=== PATIENT | male | born 1945 | race Caucasian/White ===

== ENCOUNTER → 2019-02-03 | Outpatient (CLI) | payer BC, MEDICARE | LOC: M.NUC 09:45 | DX: C61 Malignant neoplasm of prostate (principal) ==

== ENCOUNTER → 2019-07-27 | Outpatient (CLI) | payer OTHER, MEDICARE | LOC: M.NUC 05-11 11:37 | DX: C61 Malignant neoplasm of prostate (principal) ==

== ENCOUNTER 2021-08-14 17:31 | Inpatient (IN) | payer MEDICARE, OTHER ==
[~2021-08-14] VITALS: Ht 182.9 cm; Wt 123.8 kg
--- NOTE | ~2021-08-14 | OP ---
[address] [address] OPERATIVE REPORT Name: STEPHANIE CHILDRESS Room: [address] IN .R.#: [id number] Admission: 08/14/21 Attend Phys: Trevor Franks MD Discharge: Date of : 49 Report #: [id number] THIS REPORT FOR: cc: Ethan Montana MD, Anthony MD Gazzetta, Joshua D. DO ~ DATE OF SURGERY: 08/16/2021 SURGEON: You Osman DO DOSIMETRIST: Dr. Sky Arredondo. PREOPERATIVE DIAGNOSES: Cholecystitis and gallstone pancreatitis. POSTOPERATIVE DIAGNOSES: Cholecystitis, gallstone pancreatitis and choledocholithiasis. PROCEDURES PERFORMED: Laparoscopic cholecystectomy with intraoperative cholangiogram. INDICATIONS: The patient is a 76-year-old male who presented to the hospital with complaints of epigastric and right upper quadrant pain. History of present illness, physical exam and imaging were consistent with pancreatitis, likely gallstone in origin as well as cholecystitis. We discussed the risks, benefits and alternatives to surgery. Risks include bleeding, infection and damage to nearby structures including the bile ducts and bowel. The patient voiced complete understanding and elected to proceed. DESCRIPTION OF PROCEDURE: The patient was taken to the operating theater and placed in the supine position. Bilateral SCDs were placed and preoperative antibiotics were given. General anesthesia was induced without complication. The patient's abdomen was prepped and draped in the standard sterile fashion. A timeout was performed and all were in agreement. We began by making a supraumbilical midline vertical incision using an 11 blade scalpel. Dissection was carried down to the midline fascia using [facility] retractors and electrocautery. Once the fascia was appreciated, it was elevated into the surgical field and scored with electrocautery. The abdomen was entered bluntly using a hemostat and then a finger. 0 Vicryl stay sutures were placed on either edge of the fascia. When a finger was introduced into the abdomen, it felt that there was possibly some mesh below the incision site and omental adhesions. The abdomen was insufflated. The patient was placed in the head up, left side down position. A 5 mm subxiphoid port was placed under direct visualization. Two further right upper quadrant 5 mm ports were placed under direct visualization. The omentum was grossly adhered to the gallbladder and the superior liver edge. This was taken down using electrocautery. Once the gallbladder appreciated, it appeared distended, edematous and was grasped with the assistant professor [place] [address] OPERATIVE REPORT Name: STEPHANIE CHILDRESS Room: [address] IN [facility]#: [id number] Admission: 08/14/21 Attend Phys: Trevor Franks MD Discharge: Date of : 49 Report #: [id number] elevated towards the anterior abdominal wall. An additional 5 mm port was placed in the right lateral abdomen for a fan retractor. Once this had been accomplished, Pat's pouch was grasped and taken cephalad and medially. The lateral peritoneum of the gallbladder was scored with electrocautery. The peritoneal edge was carried towards the liver edge and then over Pat's pouch along the medial aspect of the gallbladder. Using a suction digital sales executive device, the peritoneal incision was swept down to expose the hepatocystic triangle. The hepatocystic triangle was cleared of fibrofatty tissue and the cystic duct was skeletonized. The cystic artery appeared to traverse anterior to the cystic duct--Pat's pouch junction and then traveled up along the lateral aspect of the gallbladder where the lymph node was located. This gave the gallbladder a twisted appearance secondary to the inflammation and fibrosis. Once the cystic duct had been isolated and the cystic artery had been isolated, a critical view of safety was obtained. There were 2 structures and only 2 structures entering the gallbladder. The liver plate could be seen from the lateral and medial aspects. The cystic artery was then clipped high on the gallbladder wall once distally and once proximally and transected with EndoShears. The lymph tissue was significantly congested and indurated. Next, a Bird clamp was introduced and clamped down to Pat's pouch. A catheter was introduced and inserted into the distal Pat's pouch. Under fluoroscopic guidance, Isovue contrast was injected. The cystic duct fills the common hepatic, right hepatic and left hepatic fills the common bile duct. There was no duodenal filling. A defect could also be seen in the common hepatic duct. This was a positive IOC. The C-arm was removed from the field. The cholangiogram catheter and Bird clamp were removed. The cystic duct was then clipped twice proximally and once distally and transected with EndoShears. The gallbladder was dissected off of the gallbladder fossa using electrocautery working inferiorly to superiorly. Hemostasis was obtained with electrocautery. There were a couple of breaks on the liver bed that were still a little oozy. Surgiflo was placed. Hemostasis was obtained. The patient was levelled out. The gallbladder had been placed in an EndoCatch bag. All 5 mm ports were removed under direct visualization. The Tariq trocar was removed. The EndoCatch bag and gallbladder were removed through the midline. The gallbladder did not fit through the midline incision, so the gallbladder was opened within the EndoCatch bag and the stones were crushed using ring forceps. This was successful and the gallbladder was removed. The midline fascia was then closed using 0 Vicryl suture in a running fashion. The subcutaneous tissue in the midline was closed using 3-0 Vicryl in interrupted inverted fashion. All skin incisions were closed using 4-0 Monocryl in interrupted inverted fashion. This concluded the procedure. All sponge, needle and instrument counts were correct x 2. ESTIMATED BLOOD LOSS: 20 mL. COMPLICATIONS: [place] [address] OPERATIVE REPORT Name: STEPHANIE CHILDRESS Room: [address] IN ..#: [id number] Admission: 08/14/21 Attend Phys: Trevor Franks MD Discharge: Date of : 49 Report #: [id number] FINDINGS: Positive intraoperative cholangiogram, distended gallbladder, cholecystitis. SPECIMENS: Gallbladder and contents. DRAINS: None. DISPOSITION: The patient was extubated successfully in the operating theater and taken to the PACU in stable condition. By: [id number] Osman DO /albina
--- NOTE | ~2021-08-14 | PROC ---
[address] [address] PROCEDURE REPORT Name: STEPHANIE CHILDRESS Room: [address] IN M.R.#: [id number] Admission: 08/14/21 Attend Phys: Trevor Franks MD Discharge: 08/18/21 Date of : 49 Report #: [id number] THIS REPORT FOR: cc: Etahn Montana MD, Anthony MD [facility],Medical Records Staff ~ For GI report, please see the Provation report in Perceptive 7 content. By: [id number] Records Staff ALEXEI /VISH
[2021-08-14 17:32] VITALS: BP 185/99
[2021-08-14] MEDS ORDERED: METFORMIN HCL500 M3 PO (17:38)
[2021-08-14] MEDS ORDERED: STOOL SOFTENER100 MG PO (17:39)
[2021-08-14] MEDS ORDERED: JARDIANCE10 MG PO (17:39)
[2021-08-14] MEDS ORDERED: GABAPENTIN100 MG PO (17:39)
[2021-08-14] MEDS ORDERED: GLIMEPIRIDE1 MG PO (17:39)
[2021-08-14] MEDS ORDERED: OMEPRAZOLE40 MG PO (17:39)
[2021-08-14] MEDS ORDERED: MELOXICAM15 MG PO (17:39)
[2021-08-14 19:15] LABS: HEMATOCRIT 42.8 % (42.0-52.0); HEMOGLOBIN 14.4 gm/dL (14.0-18.0); MCH 28.7 pg (26.0-34.0); MCHC 33.7 g/dL (28.0-37.0); MCV 85.1 fL (80.0-100.0); NUCLEATED RBCS 0 /100WBC; PLATELET COUNT* 131 thou/uL (150-400); RBC 5.03 mil/uL (4.50-6.00); RDW-CV 14.4 % (10.5-14.5); WBC 14.3 thou/uL (4.0-11.0)
[2021-08-14 19:25] LABS: CALCIUM 9.3 mg/dL (8.5-10.1); CREATININE 0.8 mg/dL (0.6-1.3); POTASSIUM 4.2 mmol/L (3.5-5.1)
[2021-08-14 19:30] LABS: ALBUMIN 3.7 g/dL (3.4-5.0); TOTAL BILIRUBIN 0.7 mg/dL (<0.1-1.0); TOTAL PROTEIN 8.5 g/dL (6.4-8.2)
[2021-08-14 19:43] LABS: ABSOLUTE MONOCYTES 0.9 thou/uL (0.0-1.2); ABSOLUTE NEUTROPHILS 12.4 thou/uL (1.6-8.1); PLATELET ESTIMATE DECREASED
[2021-08-15 01:08] VITALS: BP 166/79
[2021-08-15 01:37] VITALS: BP 161/90
[2021-08-15 04:00] VITALS: BP 143/71
[2021-08-15 04:57] LABS: ABSOLUTE MONOCYTES 0.9 thou/uL (0.0-1.2); ABSOLUTE NEUTROPHILS 11.8 thou/uL (1.6-8.1); BASOPHILS 0.2 %; EOSINOPHILS 0.1 %; HEMATOCRIT 42.4 % (42.0-52.0); HEMOGLOBIN 14.4 gm/dL (14.0-18.0); LYMPHOCYTES 7.4 %; MCH 28.9 pg (26.0-34.0); MCHC 33.8 g/dL (28.0-37.0); MCV 85.5 fL (80.0-100.0); MONOCYTES 6.8 %; MPV 8.7 fl. (7.2-11.1); NUCLEATED RBCS 0 /100WBC; PLATELET COUNT* 135 thou/uL (150-400); POLYS 85.5 %; RBC 4.96 mil/uL (4.50-6.00); RDW-CV 14.4 % (10.5-14.5); WBC 13.8 thou/uL (4.0-11.0)
[2021-08-15 05:28] LABS: CALCIUM 8.8 mg/dL (8.5-10.1); CREATININE 0.8 mg/dL (0.6-1.3); POTASSIUM 4.4 mmol/L (3.5-5.1)
[2021-08-15 05:32] LABS: ALBUMIN 3.5 g/dL (3.4-5.0); DIRECT BILIRUBIN 0.3 mg/dL (<0.1-0.3); TOTAL BILIRUBIN 0.6 mg/dL (<0.1-1.0); TOTAL PROTEIN 7.5 g/dL (6.4-8.2)
[2021-08-15 09:00] VITALS: BP 160/75
--- NOTE | 2021-08-15 09:49 | EKG ---
[place] [address] ELECTROCARDIOGRAM REPORT Name: STEPHANIE CHILDRESS Room: [address] ADM IN [facility]#: [id number] Admission: 08/14/21 Attend Phys: Trevor Franks, Discharge: Date of : 49 Date of Service: 08/14/21 1846 Report #: [id number] THIS REPORT FOR: //name// [facility] ED Test Date: 2021-08-14 Test Time: 18:46:42 Pat Name: STEPHANIE CHILDRESS Department: Room: [facility] Gender: M Aerologist: ANABELLE : 1945 Requested By: You Bear Order Number: [id number] MD: Harshad Rey Measurements Intervals [place] Rate: 95 P: 33 MA: 155 QRS: 25 QRSD: 107 T: -15 QT: 357 QTc: 449 Interpretive Statements Sinus rhythm Inferior infarct, age indeterminate Baseline wander in lead(s) I,II,III,aVL,aVF No previous ECG available for comparison Electronically Signed On 08-15-2021 9:49:19 CDT by Harshad Rey [email or web address] <ELECTRONICALLY SIGNED> By: Harshad Rey MD, [facility] 08/15/21 0949 1846 1846 Harshad Rey MD, [facility] /EPI
[2021-08-15 16:00] VITALS: BP 176/79
[2021-08-15 20:45] VITALS: BP 161/72
[2021-08-16] MEDS ORDERED: ROSUVASTATIN CA20 MG PO (00:32)
[2021-08-16] MEDS ORDERED: LISINOPRIL5 MG PO (00:32)
[2021-08-16 01:17] VITALS: BP 139/70
[2021-08-16 03:36] VITALS: BP 139/70
[2021-08-16 05:46] LABS: ABSOLUTE EOSINOPHILS 0.1 thou/uL (0.0-0.7); ABSOLUTE MONOCYTES 0.7 thou/uL (0.0-1.2); ABSOLUTE NEUTROPHILS 8.1 thou/uL (1.6-8.1); BASOPHILS 0.3 %; EOSINOPHILS 1.3 %; HEMATOCRIT 38.7 % (42.0-52.0); HEMOGLOBIN 13.2 gm/dL (14.0-18.0); LYMPHOCYTES 9.8 %; MCH 29.2 pg (26.0-34.0); MCHC 34.1 g/dL (28.0-37.0); MCV 85.7 fL (80.0-100.0); MONOCYTES 6.8 %; MPV 8.5 fl. (7.2-11.1); NUCLEATED RBCS 0 /100WBC; PLATELET COUNT* 130 thou/uL (150-400); POLYS 81.8 %; RBC 4.51 mil/uL (4.50-6.00); RDW-CV 14.4 % (10.5-14.5); WBC 9.9 thou/uL (4.0-11.0)
[2021-08-16 06:10] LABS: ALBUMIN 2.9 g/dL (3.4-5.0); CALCIUM 9.1 mg/dL (8.5-10.1); CREATININE 0.8 mg/dL (0.6-1.3); PHOSPHORUS* 2.9 mg/dL (2.5-4.9); POTASSIUM 3.6 mmol/L (3.5-5.1); TOTAL BILIRUBIN 0.4 mg/dL (<0.1-1.0); TOTAL PROTEIN 7.5 g/dL (6.4-8.2)
[2021-08-16 16:00] VITALS: BP 139/76
[2021-08-16 20:00] VITALS: BP 145/76
[2021-08-17 03:59] LABS: ABSOLUTE LYMPHOCYTES 0.5 thou/uL (0.8-5.3); ABSOLUTE MONOCYTES 0.5 thou/uL (0.0-1.2); ABSOLUTE NEUTROPHILS 5.7 thou/uL (1.6-8.1); BASOPHILS 0.1 %; HEMATOCRIT 37.8 % (42.0-52.0); HEMOGLOBIN 12.6 gm/dL (14.0-18.0); LYMPHOCYTES 7.8 %; MCH 28.9 pg (26.0-34.0); MCHC 33.4 g/dL (28.0-37.0); MCV 86.7 fL (80.0-100.0); MONOCYTES 6.9 %; MPV 8.1 fl. (7.2-11.1); NUCLEATED RBCS 0 /100WBC; PLATELET COUNT* 128 thou/uL (150-400); POLYS 85.2 %; RBC 4.36 mil/uL (4.50-6.00); RDW-CV 14.6 % (10.5-14.5); WBC 6.6 thou/uL (4.0-11.0)
[2021-08-17 04:08] LABS: ALBUMIN 2.5 g/dL (3.4-5.0); CALCIUM 8.5 mg/dL (8.5-10.1); MAGNESIUM 2.2 mg/dL (1.8-2.4); PHOSPHORUS* 3.9 mg/dL (2.5-4.9); POTASSIUM 3.9 mmol/L (3.5-5.1); TOTAL BILIRUBIN 0.4 mg/dL (<0.1-1.0); TOTAL PROTEIN 7.2 g/dL (6.4-8.2)
[2021-08-17 08:10] VITALS: BP 118/63
[2021-08-17 11:30] VITALS: BP 125/63
--- NOTE | 2021-08-17 17:16 | CON ---
[address] [address] CONSULTATION Name: STEPHANIE CHILDRESS Room: [address] IN ..#: [id number] Admission: 08/14/21 Attend Phys: Trevor Franks MD Discharge: Date of : 49 Report #: [id number] THIS REPORT FOR: cc: Ethan Montana MD,Medhat Patten MD, DO ~ cc: Ethan Montana MD, You Osman DO DATE OF CONSULTATION: 08/17/2021 Please note at the time of this dictation, the patient was seen and physically examined by myself. REASON FOR CONSULTATION: Choledocholithiasis. HISTORY OF PRESENT ILLNESS: This is a 76-year-old male who was scheduled for routine laparoscopic cholecystectomy on 08/18/2021 as an outpatient; however, on Saturday evening, he started having abdominal pain, nausea and vomiting, which progressed until he saw them in the office, prompting him to come in on Saturday because of his symptoms. He states his pain was a 9/10 upon arrival. His emesis was greenish and yellowish in color. He states his bowels have not moved since Saturday because he has not been able to eat anything since that time. The patient has undergone EGD and a colonoscopy back in 2009 that showed that he had 3 tubular adenomas in his colon, has not had a followup and EGD just showed some reflux. The patient thought he had had a colonoscopy here a couple years ago, but there is nothing in the system. At the time of this consultation and evaluating the patient, his main complaint is being n.p.o. and a dry mouth and he just has pain where his incision sites from his laparoscopic cholecystectomy done yesterday were performed. They did do a laparoscopic cholecystectomy with IOC, IOC on the report says that was negative; however, surgeon in their report noted that there was a stone in the hepatic duct. ALLERGIES: No known drug allergies. MEDICATIONS FROM HOME: Metformin, Jardiance, gabapentin, stool softener, meloxicam, omeprazole, and glyburide. PAST MEDICAL HISTORY: Includes prostate cancer in 2009, diabetes. PAST SURGICAL HISTORY: Surgery for his prostate cancer and to his skull from that. FAMILY HISTORY: Negative for any GI or female cancers. SOCIAL HISTORY: Denies any tobacco, alcohol [place] [address] CONSULTATION Name: STEPHANIE CHILDRESS Room: [address]#: [id number] Admission: 08/14/21 Attend Phys: Trevor Franks MD Discharge: Date of : 49 Report #: [id number] REVIEW OF SYSTEMS: Twelve point review of systems is essentially negative except what is mentioned in the HPI. PHYSICAL EXAMINATION: VITAL SIGNS: Temperature 97, pulse 106, respirations 16, blood pressure 145/76. HEART: Regular rate and rhythm. LUNGS: Clear. ABDOMEN: Soft with some tenderness noted over the incisional sites from the laparoscopic cholecystectomy. LABORATORY DATA: Hemoglobin is 12.6, white count is 6.6, platelets are 128. Lipase is normal at 40. BUN is 20, GFR is 73. Total bilirubin is 0.4, alkaline phosphatase on admission was 105 and is 118. ALT on admission was 47 and is now 66, AST was 20 on admission and is now 60. CT scan showed a fatty liver with some inflammation at the head of the pancreas, likely related to gallstone pancreatitis. IMPRESSION: 1. Choledocholithiasis. 2. Status post laparoscopic cholecystectomy with positive intraoperative cholangiogram of the hepatic duct. 3. Elevated liver function tests. 4. Thrombocytopenia. 5. Gastroesophageal reflux disease. 6. Fatty liver. 7. Constipation. 8. History of colon polyps. 9. History of prostate cancer. PLAN: 1. ERCP today with Dr. Colindres to occur around 1530 today. 2. Labs in the morning, CBC, CMP. 3. After the procedure, give the patient some Dulcolax 20 mg to help facilitate a bowel movement since his last one was on Saturday. 4. The patient will need as outpatient: Given that a history of polyps and last one was done in 2009. 4. Further recommendations to be made after Dr. Colindres to see the patient and after the procedure [place] [address] CONSULTATION Name: STEPHANIE CHILDRESS Room: [address]#: [id number] Admission: 08/14/21 Attend Phys: Trevor Franks MD Discharge: Date of : 49 Report #: [id number] Thank you for allowing us to participate in this patient's care. Please do not hesitate to call with any questions regarding this consult. <ELECTRONICALLY SIGNED> By: Medhat Colindres DO 08/17/21 1716 0731 [id number] Colindres DO /nt
[2021-08-17 19:43] VITALS: BP 125/70
[2021-08-18 00:06] VITALS: BP 118/66
[2021-08-18 04:10] LABS: HEMATOCRIT 34.5 % (42.0-52.0); HEMOGLOBIN 11.7 gm/dL (14.0-18.0); MCH 29.2 pg (26.0-34.0); MCV 85.9 fL (80.0-100.0); MPV 7.9 fl. (7.2-11.1); RBC 4.01 mil/uL (4.50-6.00); RDW-CV 14.8 % (10.5-14.5); WBC 6.5 thou/uL (4.0-11.0)
[2021-08-18 04:21] VITALS: BP 129/71
[2021-08-18 04:34] LABS: ALBUMIN 2.1 g/dL (3.4-5.0); CALCIUM 8.4 mg/dL (8.5-10.1); CREATININE 0.8 mg/dL (0.6-1.3); MAGNESIUM 2.4 mg/dL (1.8-2.4); PHOSPHORUS* 2.7 mg/dL (2.5-4.9); POTASSIUM 3.9 mmol/L (3.5-5.1); TOTAL BILIRUBIN 0.3 mg/dL (<0.1-1.0); TOTAL PROTEIN 6.9 g/dL (6.4-8.2)
[2021-08-18 08:00] VITALS: BP 140/76
[2021-08-18] MEDS ORDERED: HYDROCODON-ACE1 EAC7 PO (11:35)
--- NOTE | 2021-08-18 12:07 | PATH ---
[address] [address] PATHOLOGY RPT PROCEDURE Name: STEPHANIE CHILDRESS Room: [address] IN ..#: [id number] Admission: 08/14/21 Date of : 49 Discharge: Report #: [id number] Path Case #: [id number] [facility] Accession Number: [id number] . 01 Material submitted: . gallbladder - GALLBLADDER . 01 Clinical history: . LAPAROSCOPIC CHOLECYSTECTOMY WITH GRAMS CHOLELITHIASIS RIGHT UPPER QUAD ABD PAIN GALLSTONE PANCREATITIS . 02 Diagnosis: Gallbladder: - Acute erosive and severe chronic cholecystitis and cholelithiasis. (JHONATAN:laure; 08/18/2021) QMS 08/18/2021 1102 Local . 02 Electronically signed: . Edin Sellers MD, Pathologist NPI- [id number] . 01 Gross description: . Fixative: Formalin Labeled: Gallbladder Specimen received: Previously opened/torn gallbladder Dimensions: 9.1 x 4.5 x 1.7 cm Serosa: [place]-yun, ragged Lymph node: Not identified Mucosa: Velvety, light brown Average wall thickness: 0.2 cm Calculi: Identified displaying a light brown and multifaceted appearance Abnormalities: None identified . Clay Shop Supervisor body, fundus, and the cystic duct margin in cassette A1. (CAA; 08/17/2021) QA/[facility] 08/17/2021 1142 Local . 02 Pathologist provided ICD-10: K80.12 . 02 CPT . 259405 Specimen Comment: A courtesy copy of this report has been sent to [phone] Specimen Comment: [phone], Specimen Comment: Report sent to , DR BHATT / [place] [address] PATHOLOGY RPT PROCEDURE Name: STEPHANIE CHILDRESS Room: [address]#: [id number] Admission: 08/14/21 Date of : 49 Discharge: Report #: [id number] Path Case #: [id number] Performed at: [address] [place] [id number] [facility] [address], [place], [place] [id number] MD Joe Wright MD Phone: [phone] Performed at: 02 [facility] [address] [facility] [place], [place] [id number] MD Edin Sellers MD Phone: [phone]
[2021-08-18 12:13] VITALS: BP 140/76
== END 2021-08-18 12:50 | disposition home or self-care (01) | DRG 417 ==
LOC: M.ERS 17:31 → M.TBA-ER 21:50 → M.2W 21:50
PROVIDERS: Family Medicine; Physician Assistant; Student in an Organized Health Care Education/Training Program; Surgery; ADMIT Internal Medicine; ATTEND Internal Medicine
DX: K80.12 Calculus of gallbladder with acute and chronic cholecystitis without obstruction (principal); K85.10 Biliary acute pancreatitis without necrosis or infection; Z20.822 Contact with and (suspected) exposure to COVID-19; Z79.899 Other long term (current) drug therapy; E66.9 Obesity, unspecified; Z68.37 Body mass index [BMI] 37.0-37.9, adult; K21.9 Gastro-esophageal reflux disease without esophagitis; Z85.46 Personal history of malignant neoplasm of prostate; D69.6 Thrombocytopenia, unspecified; K76.0 Fatty (change of) liver, not elsewhere classified; K59.00 Constipation, unspecified; Z83.3 Family history of diabetes mellitus; Z86.010 Personal history of colon polyps; D72.829 Elevated white blood cell count, unspecified

== ENCOUNTER 2021-08-23 17:39 | Inpatient (IN) | payer MEDICARE, OTHER ==
[~2021-08-23] VITALS: Ht 182.9 cm; Wt 117.9 kg
--- NOTE | ~2021-08-23 | H ---
[address] [address] HISTORY AND PHYSICAL Name: STEPHANIE CHILDRESS Room: [address] IN .R.#: [id number] Admission: 08/23/21 Attend Phys: Teresa Dove Discharge: 08/24/21 Date of : 49 Report #: [id number] THIS REPORT FOR: cc: Ethan Montana MD, Anthony MD [facility],Medical Records Staff ~ For History and Physical please refer to the consultation note in the patient's medical record. By: [id number] Records Staff ALEXEI /VISH
[~2021-08-23 17:39] MED LIST: GABAPENTIN100 MG PO; GLIMEPIRIDE1 MG PO; HYDROCODON-ACE1 EAC7 PO; JARDIANCE10 MG PO; LISINOPRIL5 MG PO; MELOXICAM15 MG PO; METFORMIN HCL500 M3 PO; OMEPRAZOLE40 MG PO; ROSUVASTATIN CA20 MG PO; STOOL SOFTENER100 MG PO
[2021-08-23 17:48] VITALS: BP 151/59
[2021-08-23] MEDS ORDERED: ROXICODONE5 MG PO (17:52)
[2021-08-23 18:36] LABS: ABSOLUTE BASOPHILS 0.1 thou/uL (0.0-0.2); ABSOLUTE EOSINOPHILS 0.1 thou/uL (0.0-0.7); ABSOLUTE LYMPHOCYTES 1.1 thou/uL (0.8-5.3); ABSOLUTE MONOCYTES 0.8 thou/uL (0.0-1.2); ABSOLUTE NEUTROPHILS 6.5 thou/uL (1.6-8.1); EOSINOPHILS 0.7 %; HEMATOCRIT 38.7 % (42.0-52.0); HEMOGLOBIN 13.1 gm/dL (14.0-18.0); LYMPHOCYTES 13.3 %; MCHC 33.9 g/dL (28.0-37.0); MCV 85.7 fL (80.0-100.0); MONOCYTES 9.6 %; NUCLEATED RBCS 0 /100WBC; PLATELET COUNT* 210 thou/uL (150-400); POLYS 75.4 %; RBC 4.51 mil/uL (4.50-6.00); RDW-CV 14.8 % (10.5-14.5); WBC 8.5 thou/uL (4.0-11.0)
[2021-08-23 18:45] LABS: CALCIUM 8.6 mg/dL (8.5-10.1); POTASSIUM 3.2 mmol/L (3.5-5.1)
[2021-08-23 18:50] LABS: ALBUMIN 2.3 g/dL (3.4-5.0); TOTAL BILIRUBIN 0.3 mg/dL (<0.1-1.0); TOTAL PROTEIN 7.6 g/dL (6.4-8.2)
[2021-08-23] MEDS ORDERED: LISINOPRIL5 MG PO (20:52)
[2021-08-23] MEDS ORDERED: JARDIANCE10 MG PO (20:52)
[2021-08-23] MEDS ORDERED: METFORMIN HCL500 M3 PO (20:52)
[2021-08-23] MEDS ORDERED: GLIMEPIRIDE1 MG PO (20:52)
[2021-08-23] MEDS ORDERED: ROSUVASTATIN CA20 MG PO (20:52)
[2021-08-23] MEDS ORDERED: GABAPENTIN100 MG PO (20:52)
[2021-08-23] MEDS ORDERED: STOOL SOFTENER100 MG PO (20:52)
[2021-08-23] MEDS ORDERED: OMEPRAZOLE40 MG PO (20:52)
[2021-08-23 22:18] VITALS: BP 167/71
[2021-08-23 22:19] VITALS: BP 135/50
[2021-08-24] VITALS: BP 154/73
--- NOTE | 2021-08-24 06:28 | NUR ---
Admit at 2215. He had cholecystectomy 08/15. He has lapsites x 5. Abdomen is distended, he has bowel sounds x 4 and having BM's. I spoke with surgery resident Maria Elena and he stated that Dr Lorenzana would put pain med order in. He has been NPO for possible drain placement in IR. He had pain meds x 1. He has slept well.
[2021-08-24 07:23] LABS: HEMATOCRIT 34.5 % (42.0-52.0); HEMOGLOBIN 11.4 gm/dL (14.0-18.0); MCH 28.8 pg (26.0-34.0); MCV 87.2 fL (80.0-100.0); MPV 8.2 fl. (7.2-11.1); RBC 3.96 mil/uL (4.50-6.00); RDW-CV 14.9 % (10.5-14.5); WBC 6.3 thou/uL (4.0-11.0)
[2021-08-24 07:40] LABS: ALBUMIN 1.8 g/dL (3.4-5.0); CALCIUM 8.1 mg/dL (8.5-10.1); CREATININE 0.8 mg/dL (0.6-1.3); PHOSPHORUS* 3.1 mg/dL (2.5-4.9); POTASSIUM 3.7 mmol/L (3.5-5.1); TOTAL BILIRUBIN 0.4 mg/dL (<0.1-1.0); TOTAL PROTEIN 6.5 g/dL (6.4-8.2)
--- NOTE | 2021-08-24 14:54 | NUR ---
CM ASSESSMENT: PT IS A READMIT THAT RECENTLY D/C'D FROM THIS HOSPITAL 08/18/21 HOME WITH SELF-CARE. PT IS NORMALLY INDEPENDENT AND ACTIVE. PT RESIDES AT HOME WITH SPOUSE. PT USES 0 DME. PT HAS 0 HX OF [facility] OR SNF. CM WILL REMAIN AVAILABLE TO ASSIST AND FOLLOW NEEDED.
[2021-08-24 15:39] VITALS: BP 154/73
--- NOTE | 2021-08-24 16:30 | NUR ---
PATIENT DISCHARGED TO HOME. DISCHARGE PAPERS REVIEWED AND SIGNED. NO NEW PRESCRIPTIONS. IV REMOVED. PATIENT TOLERATED DIET, NO COMPLAINTS OF PAIN OR NAUSEA SINCE AM. PATIENT REFUSED TO WAIT FOR LAB DRAW. PATIENT DENIES ANY FURTHER NEEDS. PATIENT TAKEN BY WHEELCHAIR TO EXIT. LEFT WITH .
== END 2021-08-24 16:31 | disposition home or self-care (01) | DRG 948 ==
LOC: M.ERS 17:39 → M.TBA-ER 20:33 → M.2W 20:33
PROVIDERS: Physician Assistant; ADMIT Surgery; ATTEND Surgery
PROC: 0F903ZZ Drainage of Liver, Percutaneous Approach (ICD-10-PCS; principal; 2021-08-24)
DX: R18.8 Other ascites (principal); E44.1 Mild protein-calorie malnutrition; Z20.822 Contact with and (suspected) exposure to COVID-19; E11.9 Type 2 diabetes mellitus without complications; Z85.46 Personal history of malignant neoplasm of prostate; Z90.49 Acquired absence of other specified parts of digestive tract; Z68.35 Body mass index [BMI] 35.0-35.9, adult

== ENCOUNTER → 2021-12-13 | Outpatient (CLI) | payer MEDICARE, OTHER ==
[~2021-12-13] MED LIST changes: +ROXICODONE5 MG PO
== END ==
LOC: M.LAB 06:58
PROVIDERS: ATTEND Internal Medicine Gastroenterology
DX: Z01.812 Encounter for preprocedural laboratory examination (principal); Z20.822 Contact with and (suspected) exposure to COVID-19

== ENCOUNTER → 2021-12-19 | Outpatient (CLI) | payer MEDICARE, OTHER ==
[2021-12-19 12:36] LABS: ABSOLUTE EOSINOPHILS 0.1 thou/uL (0.0-0.7); ABSOLUTE LYMPHOCYTES 1.8 thou/uL (0.8-5.3); ABSOLUTE MONOCYTES 0.4 thou/uL (0.0-1.2); ABSOLUTE NEUTROPHILS 3.4 thou/uL (1.6-8.1); BASOPHILS 0.4 %; EOSINOPHILS 2.5 %; HEMATOCRIT 40.9 % (42.0-52.0); HEMOGLOBIN 13.7 gm/dL (14.0-18.0); LYMPHOCYTES 30.7 %; MCH 28.5 pg (26.0-34.0); MCHC 33.6 g/dL (28.0-37.0); MCV 84.8 fL (80.0-100.0); MONOCYTES 6.3 %; MPV 7.5 fl. (7.2-11.1); NUCLEATED RBCS 0 /100WBC; PLATELET COUNT* 151 thou/uL (150-400); POLYS 60.1 %; RBC 4.82 mil/uL (4.50-6.00); RDW-CV 13.9 % (10.5-14.5); WBC 5.7 thou/uL (4.0-11.0)
[2021-12-19 12:50] LABS: ALBUMIN 3.6 g/dL (3.4-5.0); CREATININE 0.9 mg/dL (0.6-1.3); POTASSIUM 3.9 mmol/L (3.5-5.1); TOTAL BILIRUBIN 0.2 mg/dL (<0.1-1.0); TOTAL PROTEIN 7.7 g/dL (6.4-8.2)
[2021-12-19 13:50] LABS: ESR (SEDRATE) 21 mm/hr (0-20)
== END ==
LOC: M.LAB 12-18 12:00 → M.CT 12-18 13:00 → M.LAB 12:14
PROVIDERS: ATTEND Internal Medicine Gastroenterology
DX: K76.0 Fatty (change of) liver, not elsewhere classified (principal); K43.9 Ventral hernia without obstruction or gangrene; N28.1 Cyst of kidney, acquired; I70.8 Atherosclerosis of other arteries; T81.9XXA Unspecified complication of procedure, initial encounter; Z90.49 Acquired absence of other specified parts of digestive tract; Z90.79 Acquired absence of other genital organ(s); Y83.9 Surgical procedure, unspecified as the cause of abnormal reaction of the patient, or of later complication, without mention of misadventure at the time of the procedure; Y92.89 Other specified places as the place of occurrence of the external cause